=== PATIENT | female | born 1965 | race Caucasian/White ===

== ENCOUNTER 2021-01-27 10:19 | Emergency (ER) | payer MEDICAID ==
[~2021-01-27] VITALS: Ht 152.4 cm; Wt 74.8 kg
[2021-01-27 10:19] VITALS: BP_SYST 109
--- NOTE | 2021-01-27 10:20 | NUR ---
BROUGHT BACK TO BED #7 AND TRIAGED. REPORT GIVEN TO JESSIKA
--- NOTE | 2021-01-27 10:36 | NUR ---
Pt. came in with c/o asmatha flare up states used her nebulizer last around 3 am and still feels tightness and has pain to back 5/10, has a productive cough, and is currently on antibiotics
--- NOTE | 2021-01-27 11:00 | NUR ---
ER at bedside examining patient.
[2021-01-27] MEDS ORDERED: LevALBUTEROL HCL 1.25 MG/0.5 ML *CONC.* VIAL.NEB (XOPENEX CONC.) INH ONE (11:15)
--- NOTE | 2021-01-27 11:20 | NUR ---
breathing tx. done pt. states feels better "able to take a deep breath"
--- NOTE | 2021-01-27 11:30 | NUR ---
Patient ambulated to radiology, accompanied by staff.
[2021-01-27] MEDS ORDERED: PRED20TA PO (13:34)
[2021-01-27] MEDS ORDERED: BENZ-16 PO (13:34)
[2021-01-27] MEDS ORDERED: predniSONE 20 MG TABLET PO ONE (13:45)
[2021-01-27 13:46] VITALS: BP_SYST 117
--- NOTE | 2021-01-27 13:47 | NUR ---
Patient given written and verbal discharge instructions and verbalizes understanding. ER discussed with patient the results and treatment provided. Patient in stable condition. ID arm band removed. Rx of Prednisone and tessalon given. Patient educated on pain management and to follow up with PMD. Pain Scale 2. Opportunity for questions provided and answered. Medication side effect fact sheet provided.
== END 2021-01-27 13:47 | disposition home or self-care (01) ==
LOC: SED 10:19
DX: J45.901 Unspecified asthma with (acute) exacerbation (principal); Z79.899 Other long term (current) drug therapy; Z20.822 Contact with and (suspected) exposure to COVID-19
CPT/HCPCS: 71045; 87426; 94640; 99284; J7512; J7612; 36415

== ENCOUNTER 2021-01-30 18:59 | Emergency (ER) | payer MEDICAID ==
[~2021-01-30 18:59] MED LIST: BENZ-16 PO; PRED20TA PO
[2021-01-30 19:20] VITALS: BP_SYST 120
[2021-01-30 19:43] LABS: BASOPHILS % (AUTO) 0.4 % (0.0-2.0); EOSINOPHILS % (AUTO) 0.1 % (0.0-4.0); HEMOGLOBIN 13.9 g/dL (12.0-16.0); LYMPHOCYTES # (AUTO) 0.7 K/uL (1.0-5.5); LYMPHOCYTES % (AUTO) 9.6 % (20.5-51.5); MEAN CORPUSCULAR HEMOGLOBIN 30 pg (27-31); MEAN CORPUSCULAR HGB CONC 34 % (32-36); MEAN CORPUSCULAR VOLUME 89 fL (79.0-98.0); MONOCYTES # (AUTO) 0.2 K/uL (0.0-1.0); MONOCYTES % (AUTO) 2.9 % (1.7-9.3); NEUTROPHILS # (AUTO) 6.4 K/uL (1.8-7.7); PLATELET COUNT (AUTO) 248 K/uL (130-430); RED BLOOD CELL COUNT(AUTO) 4.63 MIL/uL (4.2-6.2); RED CELL DISTRIBUTION WIDTH 12.9 % (9.0-15.0); WHITE BLOOD COUNT (AUTO) 7.4 K/uL (4.8-10.8)
[2021-01-30 19:44] LABS: BILIRUBIN,URINE NEGATIVE (NEGATIVE); BLOOD, URINE NEGATIVE (NEGATIVE); CLARITY/URINE CLEAR (CLEAR); GLUCOSE,URINE 3+ (NEGATIVE); KETONES,URINE NEGATIVE (NEGATIVE); LEUKOCYTE ESTERASE ,URINE NEGATIVE (NEGATIVE); NITRITE, URINE NEGATIVE (NEGATIVE); PROTEIN URINE NEGATIVE (NEGATIVE); UROBILINOGEN,URINE 0.2 (0.2-1.0)
[2021-01-30 19:46] LABS: COLOR,URINE STRAW (YELLOW)
[2021-01-30 20:07] LABS: BACTERIA,URINE RARE /HPF (None Seen); RBC,URINE NONE SEEN /HPF (0-3); WBC,URINE NONE SEEN /HPF (0-3)
[2021-01-30 20:09] LABS: CREATININE 1.18 mg/dL (0.55-1.30); POTASSIUM 4.4 mmol/L (3.5-5.1)
[2021-01-30 20:25] LABS: ALBUMIN 4.1 g/dL (3.4-4.8); TOTAL BILIRUBIN 0.6 mg/dL (0.0-1.0)
[2021-01-30] MEDS ORDERED: NACL 0.9% 1,000 ML IV ONE (20:45)
[2021-01-30] MEDS ORDERED: INSULIN REGULAR, HUMAN 10 UNITS/0.1 ML INJ IVP ONE (20:45)
[2021-01-31] VITALS: BP_SYST 124
== END 2021-01-31 | disposition home or self-care (01) ==
LOC: SED 18:59
DX: E11.65 Type 2 diabetes mellitus with hyperglycemia (principal); R53.1 Weakness; J45.909 Unspecified asthma, uncomplicated; Z79.899 Other long term (current) drug therapy
CPT/HCPCS: 36415; 70450; 71045; 76376; 80053; 81000; 82962; 85025; 93005; 96360; 99285; J7030

== ENCOUNTER 2021-06-05 17:03 | Emergency (ER) | payer OTHER, MEDICAID ==
[~2021-06-05] VITALS: Ht 154.9 cm; Wt 73.0 kg
--- NOTE | 2021-06-05 17:05 | NUR ---
Patient triaged and placed in waiting room. VSS and patient appears in no acute distress at this time. Accompanied by self , awaiting available bed, and MD notified of need for MSE.
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
[2021-06-05 17:09] VITALS: BP_SYST 127
--- NOTE | 2021-06-05 17:20 | NUR ---
Marley simmons in [facility] - 06/05/21 at [email or web address] Woodson evaluating patient in the triage room
--- NOTE | 2021-06-05 17:20 | NUR ---
Dr Carlson evaluating patient at bedside.
--- NOTE | 2021-06-05 17:50 | NUR ---
Patient to ER bed 04 to gown for evaluation. Side rails up.
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
[2021-06-05] MEDS ORDERED: SOM350 PO (18:22)
[2021-06-05] MEDS ORDERED: IBUP-1969 PO (18:22)
[2021-06-05 18:58] VITALS: BP_SYST 130
--- NOTE | 2021-06-05 18:59 | NUR ---
Patient given written and verbal discharge instructions and verbalizes understanding. ER Dr. Carlson discussed with patient the results and treatment provided. Patient in stable condition. ID arm band removed. Rx of Soma and Ibuprofen given. Patient educated on pain management and to follow up with PMD. Pain Scale 0. Opportunity for questions provided and answered. Medication side effect fact sheet provided.
== END 2021-06-05 18:58 | disposition home or self-care (01) ==
LOC: SED 17:03
DX: S13.4XXA Sprain of ligaments of cervical spine, initial encounter (principal); S09.90XA Unspecified injury of head, initial encounter; E11.9 Type 2 diabetes mellitus without complications; J45.909 Unspecified asthma, uncomplicated; Z79.899 Other long term (current) drug therapy; V49.49XA Driver injured in collision with other motor vehicles in traffic accident, initial encounter; Y93.89 Activity, other specified; Y92.89 Other specified places as the place of occurrence of the external cause; Y99.8 Other external cause status
CPT/HCPCS: 70450-TC; 72125-TC; 76376; 99284

== ENCOUNTER 2022-09-09 20:57 | Emergency (ER) | payer BC, MEDICAID ==
[~2022-09-09] VITALS: Ht 154.9 cm; Wt 77.1 kg
[~2022-09-09 20:57] MED LIST changes: +IBUP-1969 PO; +SOM350 PO
[2022-09-09 21:03] VITALS: BP_SYST 116; PULSE 60; TEMP 98.4; O2SAT 98
[2022-09-09 22:36] VITALS: BP_SYST 116; PULSE 60; TEMP 98.4; O2SAT 98
--- NOTE | 2022-09-09 22:36 | NUR ---
PATIENT NOTIFIED REGISTRATION DESK SHE IS LEAVING. PATIENT LEFT WITHOUT BEING SEEN
== END 2022-09-09 22:36 | disposition left against medical advice (07) ==
LOC: SED 20:57
DX: M54.50 Low back pain, unspecified (principal); Z53.21 Procedure and treatment not carried out due to patient leaving prior to being seen by health care provider
CPT/HCPCS: 99281